=== PATIENT | male | born 1950 | race Caucasian/White ===

== ENCOUNTER 2021-10-14 03:37 | Emergency (ER) | payer MEDICARE, OTHER ==
[~2021-10-14 03:37] MED LIST: ASPIR-LOW81 MG PO; COZAAR 50MG TAB50 MG PO; CRESTOR40 MG PO; GLUCOPHAGE500 MG PO; IMDUR ER TAB 3030 MG PO; IMDUR ER TAB 6060 MG PO; PERCOCET 5-3251 EACH PO; PLAVIX75 MG PO; PROTONIX40 MG PO; RANEXA500 MG PO; SINGULAIR10 MG PO; TOPROL XL25 MG PO
[2021-10-14 04:33] LABS: HEMOGLOBIN 15.6 gm/dl (14.0-17.5); RED BLOOD COUNT 5.36 M/UL (4.20-5.50); WHITE BLOOD COUNT 7.5 K/UL (4.5-11.0)
[2021-10-14] MEDS ORDERED: HYDROCODON-ACE1 EAC4 PO (05:38)
[2021-10-14] MEDS ORDERED: ONDANSETRON ODT4 MG SL (05:40)
[2021-10-14] MEDS ORDERED: FLOMAX 0.4 MG0.4 MG PO (05:40)
== END 2021-10-14 05:52 | disposition home or self-care (01) ==
LOC: ER1 03:37
PROVIDERS: Student in an Organized Health Care Education/Training Program
DX: N13.2 Hydronephrosis with renal and ureteral calculous obstruction (principal); I11.9 Hypertensive heart disease without heart failure; I25.2 Old myocardial infarction; E11.9 Type 2 diabetes mellitus without complications; Z95.5 Presence of coronary angioplasty implant and graft
CPT/HCPCS: 80053; 81001; 83690; 85025; 96374; 96375; 99284; J1170; J2270; J2405